=== PATIENT | male | born 1985 | race Caucasian/White ===

== ENCOUNTER 2020-02-13 10:30 | Inpatient (IN) ==
[2020-02-13] MEDS ORDERED: Al Hydrox/Mg Hydrox/Simet LIQ 30 ML UDC PO PRN (22:27)
[2020-02-14 08:42] LABS: HDL Cholesterol 54.1 mg/dL
[2020-02-14] MEDS ORDERED: Vitamin THERAPEUTIC TAB PO SCH (09:00)
[2020-02-16 08:46] VITALS: BP 110/66
== END 2020-02-16 15:30 | disposition home or self-care (01) | DRG 751 ==
LOC: ED 10:30 → BSU 19:40
PROVIDERS: ADMIT Psychiatry & Neurology Psychiatry; ATTEND Psychiatry & Neurology Psychiatry